=== PATIENT | female | born 1980 | race Caucasian/White ===

== ENCOUNTER 2021-08-17 08:02 | Inpatient (IN) ==
[2021-08-17 08:58] LABS: Urine Appearance Cloudy; Urine Bilirubin Negative (Negative); Urine Blood Negative (Negative); Urine Color Yellow; Urine Glucose Negative (Negative); Urine Ketones Negative (Negative); Urine Nitrite Negative (Negative); Urine Protein Negative (Negative); Urine Specific Gravity 1.008 (1.002-1.030); Urine Urobilinogen Negative (Negative)
[2021-08-17 09:07] LABS: Urine Benzodiazepine Screen None Detected (None Detect); Urine Cannabinoids Screen None Detected (None Detect); Urine Opiates Screen None Detected (None Detect)
[2021-08-17] MEDS ORDERED: Buffered Lidocaine 1% SYRIN 1 ml INTRADERM ONE (09:47)
[2021-08-17] MEDS ORDERED: Lactated Ringers 1000 ml BAG 1,000 ML IV ONE (09:47)
[2021-08-17 23:44] LABS: ABS Basophils 0.1 10^3/ul (0-0.2); ABS Eosinophils 0.1 10^3/ul (0-0.6); ABS Lymphocytes 1.8 10^3/ul (1.0-4.8); ABS Monocytes 0.6 10^3/ul (0-0.8); ABS Neutrophils 8.4 10^3/ul (1.5-7.7); Eosinophil % 0.7 %; Hematocrit 34 % (35-47); Hemoglobin 11.6 g/dL (12.0-16.0); Lymphocyte % 16.7 %; Mean Corpuscular HGB Conc 34 g/dL (31-36); Mean Corpuscular Hemoglobin 28 pg (27-31); Mean Corpuscular Volume 82 fL (80-97); Mean Platelet Volume 9.1 fL (7.4-10.4); Nucleated Red Blood Cells % 0.1; Platelet Count 254 10^3/uL (150-450); Red Blood Count 4.13 10^6 /uL (3.70-4.87); Red Cell Distribution Width 16 % (10-15); White Blood Count 10.9 10^3/uL (3.5-10.8)
[2021-08-18 00:02] LABS: Albumin 3.5 g/dL (3.2-5.2); Calcium 9.6 mg/dL (8.6-10.3); Globulin 3.6 g/dL (2-4); Total Protein 7.1 g/dL (6.4-8.9); Uric Acid 5.8 mg/dL (2.3-6.6); eGFR CKD-EPI 116.4 (>60)
[2021-08-18 00:03] LABS: Total Bilirubin 0.2 mg/dL (0.2-1.0)
[2021-08-18] MEDS ORDERED: OBEPIDURAL 250 ML EPIDURAL ONE ×2 (04:14→23:23)
[2021-08-18] MEDS ORDERED: Lactated Ringers 1000 ml BAG 1,000 ML IV ONE (04:44)
[2021-08-18] MEDS ORDERED: Sodium Citrate/Citric Acid LIQ 15 ML UDC PO PRN (04:44)
[2021-08-18] MEDS ORDERED: Phenylephrine 40 mcg/mL 10mL (400mcg) SYRINGE IV PUSH PRN ×2 (04:44)
[2021-08-18] MEDS ORDERED: Lactated Ringers 1000 ml BAG 1,000 ML IV SCH (05:00)
[2021-08-18 06:33] LABS: Urine Benzodiazepine Screen None Detected (None Detect); Urine Cannabinoids Screen None Detected (None Detect); Urine Opiates Screen None Detected (None Detect)
[2021-08-18] MEDS ORDERED: Oxytocin in LR 20 UNITS/1,000 ML BAG IVPB ONE (07:54)
[2021-08-18] MEDS ORDERED: Levalbuterol HFA INHALER MDI ONE (17:57)
[2021-08-18] MEDS ORDERED: fentaNYL 100 mcg/2 ml 50 MCG/ML VIAL ONE (17:58)
[2021-08-18] MEDS ORDERED: Sterile Water for Inj 10 ML ONE (17:58)
[2021-08-18] MEDS ORDERED: Bupivacaine 0.25% SDV PF 10 ML VIAL INJ ONE (17:58)
[2021-08-18] MEDS: Lactated Ringers 1000 ml BAG 1,000 ML IV SCH (19:25)
[2021-08-19] MEDS: Lactated Ringers 1000 ml BAG 1,000 ML IV SCH ×2 (02:18→07:08)
[2021-08-19] MEDS ORDERED: Bupivacaine 0.25% SDV PF 10 ML VIAL INJ ONE (04:15)
[2021-08-19] MEDS ORDERED: Sterile Water for Inj 10 ML ONE (04:15)
[2021-08-19] MEDS ORDERED: fentaNYL 100 mcg/2 ml 50 MCG/ML VIAL ONE ×2 (04:15→08:25)
[2021-08-19] MEDS ORDERED: Ondansetron 4 mg VIAL 2 MG/ML 2 ml VIAL ONE ×2 (04:34→09:12)
[2021-08-19] MEDS ORDERED: ceFOXitin 2 GM IVPREMIX 2 GM/50 ML BAG ONE (05:57)
[2021-08-19] MEDS ORDERED: Chloroprocaine 3% 20 ml VIAL ONE (07:30)
[2021-08-19] MEDS ORDERED: Oxytocin 10 UNITS/ML 1 ML VIAL ONE (07:57)
[2021-08-19] MEDS ORDERED: Lidocaine 2% w/ EPI 1:200,000 MPF 20 ML SDV VIAL ONE (07:57)
[2021-08-19] MEDS ORDERED: Morphine PF AMP (0.5MG/ML) 5 MG/10 ML AMP ONE (08:15)
[2021-08-19] MEDS ORDERED: Bupivacaine 0.5% SDV PF 30ML VIAL ONE (08:34)
[2021-08-19] MEDS ORDERED: Midazolam 2 mg/2 ml VIAL 1 mg/ml 2 ml VIAL (2 mg) ONE (08:42)
[2021-08-19] MEDS ORDERED: EPHEDrine (Pressors) 50 MG/ML VIAL ONE (08:52)
[2021-08-19] MEDS ORDERED: Dexamethasone IV 4 MG/ML VIAL 1 ml VIAL ONE (09:12)
[2021-08-19] MEDS ORDERED: fentaNYL 100 mcg/2 ml 50 MCG/ML VIAL IV PRN (09:39)
[2021-08-19] MEDS ORDERED: Naloxone 0.4 mg VIAL 0.4 mg/ml 1 ml VIAL IV PRN ×2 (09:39→09:40)
[2021-08-19] MEDS ORDERED: Naloxone 4 mg VIAL (10 ml) 2 MG in NS 0.9% 250 ml 250 ML IV PRN (09:40)
[2021-08-19] MEDS ORDERED: HYDROcodone/ACETAMIN 5/325 mg TAB PO PRN (09:40)
[2021-08-19] MEDS ORDERED: DiMENhydriNATE IV 50 mg/ml 1 ml VIAL IV PUSH PRN (09:40)
[2021-08-19] MEDS ORDERED: diPHENhydraMINE IV 50 MG/ML 1 ml VIAL (BENADRYL) IV PRN (09:40)
[2021-08-19] MEDS ORDERED: Ondansetron 4 mg VIAL 2 MG/ML 2 ml VIAL IV PRN (09:40)
[2021-08-19] MEDS ORDERED: Oxytocin in LR 20 UNITS/1,000 ML BAG IVPB ONE (11:50)
[2021-08-19] MEDS ORDERED: Dibucaine 1% OINT 28.35 GM TUBE PR PRN (15:33)
[2021-08-19] MEDS ORDERED: Witch Hazel PAD JAR TOPICAL PRN (15:33)
[2021-08-19] MEDS ORDERED: Glycerin ADULT 2.4 gm SUPP PR PRN (15:33)
[2021-08-19] MEDS ORDERED: Oxytocin in LR 20 UNITS/1,000 ML BAG IVPB SCH (16:00)
[2021-08-19] MEDS ORDERED: Lactated Ringers 1000 ml BAG 1,000 ML IV SCH (16:00)
[2021-08-19 16:06] LABS: Urine Appearance Cloudy; Urine Bilirubin Negative (Negative); Urine Blood 3+ (Negative); Urine Color Yellow; Urine Glucose Negative (Negative); Urine Ketones Negative (Negative); Urine Nitrite Negative (Negative); Urine Protein 1+(30 mg/dL) (Negative); Urine Specific Gravity 1.015 (1.002-1.030); Urine Urobilinogen Negative (Negative)
[2021-08-19 16:13] LABS: Urine Bacteria Absent (Absent); Urine Red Blood Cell 3+(>10/hpf) (Absent); Urine Squamous Epithelial Cell Present (Absent); Urine White Blood Cell 3+(>20/hpf) (Absent)
[2021-08-19] MEDS ORDERED: Phenylephrine 40 mcg/mL 10mL (400mcg) SYRINGE ONE (17:25)
[2021-08-20 06:36] LABS: ABS Monocytes 0.4 10^3/ul (0-0.8); ABS Neutrophils 10.5 10^3/ul (1.5-7.7); Eosinophil % 0.3 %; Hematocrit 28 % (35-47); Hemoglobin 9.4 g/dL (12.0-16.0); Lymphocyte % 8.5 %; Mean Corpuscular HGB Conc 34 g/dL (31-36); Mean Corpuscular Hemoglobin 28 pg (27-31); Mean Corpuscular Volume 83 fL (80-97); Platelet Count 181 10^3/uL (150-450); Red Blood Count 3.37 10^6 /uL (3.70-4.87); Red Cell Distribution Width 17 % (10-15)
[2021-08-21] MEDS: OBEPIDURAL 250 ML EPIDURAL SCH ×2 (07:54→07:55)
[2021-08-21 08:11] VITALS: BP 136/86
== END 2021-08-21 14:12 | disposition home or self-care (01) | DRG 540 ==
LOC: MCHOBOUT 08:02 → MCHOB 09:50
PROVIDERS: ADMIT Midwife; ATTEND Obstetrics & Gynecology